=== PATIENT | male | born 1975 | race Caucasian/White ===

== ENCOUNTER 2017-02-08 16:42 | Inpatient (IN) | payer MEDICAID ==
[~2017-02-08] VITALS: Ht 165.1 cm; Wt 73.9 kg
[2017-02-08 19:09] LABS: BASOPHIL % 0.5 % (0-2)
[2017-02-08 19:13] LABS: PLATELET COUNT 68 x10^3mcL (130-400); RED CELL DISTRIBUTION WIDTH 17.8 % (11.5-14.5)
[2017-02-08 19:14] LABS: CALCIUM 7.1 mg/dL (8.5-10.1); CARBON DIOXIDE 26.8 mmol/L (21-32); CHLORIDE SERUM 102 mmol/L (98-107); CREATININE SERUM 0.9 mg/dL (0.7-1.3); GFR1 > 60 mL/min; GLUCOSE SERUM 109 mg/dL (74-106); POTASSIUM SERUM 3.2 mmol/L (3.5-5.1); SODIUM SERUM 136 mmol/L (136-145)
[2017-02-08 19:18] LABS: ALKALINE PHOSPHATASE 282 U/L (46-116); ALT/SGPT 117 U/L (16-63); AST/SGOT 242 U/L (15-37); BILIRUBIN TOTAL 2.7 mg/dL (0.20-1.00); TOTAL PROTEIN, SERUM 6.8 g/dL (6.4-8.2)
[2017-02-08 19:22] LABS: ALBUMIN 2.1 g/dL (3.4-5.0)
[2017-02-08 20:52] LABS: CK-MB 2.6 ng/mL (0-3.6)
[2017-02-08 21:36] VITALS: BP 129/64
[2017-02-08 21:53] LABS: UA SPECIFIC GRAVITY 1.015 (1.005-1.035); microscopic required? YES; urine erythrocyte 2+ (NEGATIVE)
[2017-02-08 22:10] LABS: AMPHETAMINE QUAL UR NONE DETECTED (NEG <=1000)
[2017-02-08 22:50] LABS: T3 TOTAL 0.7 ng/mL
[2017-02-08 22:52] VITALS: BP 129/64
[2017-02-08 22:58] LABS: CHOLESTEROL/HDL RATIO 2.9; MAGNESIUM 1.4 mg/dL (1.8-2.4); PHOSPHOROUS 2.5 mg/dL (2.5-4.9)
[2017-02-08 23:02] LABS: T4(THYROXINE) 4.9 ug/dL (4.7-13.3)
[2017-02-09 03:41] LABS: BASOPHIL % 2.2 % (0-2); PLATELET COUNT 55 x10^3mcL (130-400); RED CELL DISTRIBUTION WIDTH 16.2 % (11.5-14.5)
[2017-02-09 03:44] LABS: CALCIUM 7.3 mg/dL (8.5-10.1); CARBON DIOXIDE 29.1 mmol/L (21-32); CHLORIDE SERUM 97 mmol/L (98-107); CREATININE SERUM 0.8 mg/dL (0.7-1.3); GFR1 > 60 mL/min; GLUCOSE SERUM 104 mg/dL (74-106); POTASSIUM SERUM 3.1 mmol/L (3.5-5.1); SODIUM SERUM 128 mmol/L (136-145)
[2017-02-09 06:50] VITALS: BP 125/69
[2017-02-09 07:45] VITALS: BP 130/72
[2017-02-09 13:53] VITALS: BP 117/89
[2017-02-09 16:42] LABS: IRON 110 ug/dL (65-170)
[2017-02-09 16:45] LABS: TOTAL IRON BINDING CAPACITY 217 ug/dL (250-450)
[2017-02-09 16:46] LABS: RED BLOOD CELLS 2.96 M/mm3 (4.52-5.90)
[2017-02-09 16:52] VITALS: BP 139/77
[2017-02-09 21:24] VITALS: BP 139/78
[2017-02-10 05:45] VITALS: BP 116/55
[2017-02-10 06:19] LABS: CALCIUM 7.4 mg/dL (8.5-10.1); CARBON DIOXIDE 24.8 mmol/L (21-32); CHLORIDE SERUM 104 mmol/L (98-107); CREATININE SERUM 0.8 mg/dL (0.7-1.3); GFR1 > 60 mL/min; GLUCOSE SERUM 102 mg/dL (74-106); MAGNESIUM 1.9 mg/dL (1.8-2.4); PHOSPHOROUS 2.5 mg/dL (2.5-4.9); POTASSIUM SERUM 3.5 mmol/L (3.5-5.1); SODIUM SERUM 136 mmol/L (136-145)
[2017-02-10 06:30] LABS: BASOPHIL % 0.2 % (0-2)
[2017-02-10 06:32] LABS: PLATELET COUNT 57 x10^3mcL (130-400); RED CELL DISTRIBUTION WIDTH 18.3 % (11.5-14.5)
[2017-02-10 09:40] VITALS: BP 116/60
[2017-02-10 14:15] VITALS: BP 142/77
[2017-02-10 16:24] VITALS: BP 137/76
[2017-02-10 17:40] VITALS: BP 137/76
[2017-02-10] MEDS ORDERED: IND10 PO ×2 (17:59→18:24)
[2017-02-10] MEDS ORDERED: OXCARBAZEPINE300 M1 PO ×2 (18:00→18:24)
[2017-02-10] MEDS ORDERED: PRI20 PO ×2 (18:00→18:24)
== END 2017-02-10 18:28 | disposition home or self-care (01) | DRG 241 ==
LOC: ED 16:42 → DU 20:39
PROVIDERS: Emergency Medicine; Internal Medicine Gastroenterology; ADMIT Family Medicine
PROC: 0DB68ZX Excision of Stomach, Via Natural or Artificial Opening Endoscopic, Diagnostic (ICD-10-PCS; principal; 2017-02-10 14:00)
DX: K29.21 Alcoholic gastritis with bleeding (principal); N17.0 Acute kidney failure with tubular necrosis; E43 Unspecified severe protein-calorie malnutrition; D69.59 Other secondary thrombocytopenia; G31.2 Degeneration of nervous system due to alcohol; D62 Acute posthemorrhagic anemia; K70.30 Alcoholic cirrhosis of liver without ascites; E87.1 Hypo-osmolality and hyponatremia; T51.0X1A Toxic effect of ethanol, accidental (unintentional), initial encounter; F10.229 Alcohol dependence with intoxication, unspecified; E87.6 Hypokalemia; E83.39 Other disorders of phosphorus metabolism; Z68.27 Body mass index [BMI] 27.0-27.9, adult; Z59.0 Homelessness; Y90.5 Blood alcohol level of 100-119 mg/100 ml
CPT/HCPCS: 43235; 83880; 84439; C9113; G0480; J1200; J1610; J1956; J2250; J2310; J3010; J3411; J3430; J3475; J3480; J3490; J7030; Q0092